=== PATIENT | male | born 1975 | race Two or more races ===

== ENCOUNTER 2020-12-22 08:48 | Emergency (ER) | payer OTHER ==
[~2020-12-22] VITALS: Ht 177.8 cm; Wt 129.7 kg
--- NOTE | 2020-12-22 08:57 | NUR ---
THE PATIENT BIBS FOR C/O ABDOMINAL PAIN AND RECTAL BLEED. ABDOMEN SOFT AND NON-DISTENDED. DENIES PAIN AT THIS TIME. WILL CONTINUE TO MONITOR THE PATIENT.
--- NOTE | 2020-12-22 08:58 | NUR ---
DARRYN GOULD AT THE BEDSIDE
[2020-12-22 09:11] LABS: BASOPHILS % (AUTO) 0.7 % (0.0-2.0); EOSINOPHILS % (AUTO) 1.3 % (0.0-6.0); HEMATOCRIT 46 % (39-51); HEMOGLOBIN 15.7 g/dL (13.5-17.5); LYMPHOCYTES # (AUTO) 2.8 K/uL (0.8-4.8); LYMPHOCYTES % (AUTO) 45.2 % (20.0-44.0); MEAN CORPUSCULAR HGB CONC 34 g/dl (31.0-36.0); MEAN CORPUSCULAR VOLUME 87 fL (80-96); MONOCYTES # (AUTO) 0.8 K/uL (0.1-1.30); MONOCYTES % (AUTO) 12.4 % (2.0-12.0); NEUTROPHILS # (AUTO) 2.5 K/uL (1.8-8.9); NEUTROPHILS % (AUTO) 40.4 % (43.0-81.0); PLATELET COUNT (AUTO) 275 K/uL (150-450); WHITE BLOOD COUNT (AUTO) 6.3 K/uL (4.3-11.0)
[2020-12-22 09:21] LABS: CALCIUM, SERUM 8.8 mg/dL (8.5-10.1)
[2020-12-22] MEDS ORDERED: IV NS 0.9% 250 ML IV ONE (09:51)
[2020-12-22] MEDS ORDERED: IOHEXOL-300 100 ML VIAL IV ONE (09:51)
[2020-12-22] MEDS ORDERED: CT SWABBABLE VALVE TRANS SET 1 EA INFUS.SET MC ONE (09:51)
--- NOTE | 2020-12-22 09:53 | NUR ---
STARTED LAC G 18. THE PATIENT TOLERATED IV INSERTION WELL.
[2020-12-22 10:47] LABS: ALBUMIN 3.6 g/dL (3.4-5.0); BILIRUBIN,DIRECT 0.1 mg/dL (0.0-0.2); BILIRUBIN,TOTAL 0.2 mg/dL (0.2-1.0); TOTAL PROTEIN, SERUM 7.4 g/dL (6.4-8.2)
--- NOTE | 2020-12-22 11:07 | NUR ---
THE PATIENT IS RESTING IN BED. ALERT AND ORIENTED X4. DENIES PAIN. BREATHING EVEN AND UNLABORED. WILL CONTINUE TO MONITOR THE PATIENT.
[2020-12-22] MEDS ORDERED: AMOX-427 PO ×3 (11:18→11:29)
[2020-12-22] MEDS ORDERED: IBUP-1955 PO ×2 (11:18→11:27)
[2020-12-22] MEDS ORDERED: IBUP-1957 PO (11:29)
[2020-12-22 11:32] VITALS: BP 135/72
--- NOTE | 2020-12-22 11:32 | NUR ---
IV removed. Catheter intact and site benign. Pressure and 4x4 applied to site. No bleeding noted.Patient discharged to home in stable condition. Written and verbal after care instructions given. Patient verbalizes understanding of instruction.
== END 2020-12-22 11:32 | disposition home or self-care (01) ==
LOC: ER 08:48
DX: K62.5 Hemorrhage of anus and rectum (principal); K04.7 Periapical abscess without sinus; Z88.2 Allergy status to sulfonamides
CPT/HCPCS: 36415; 74177; 80048; 80076; 83690; 85025; 85730; 99285; J7050; Q9967

== ENCOUNTER 2021-12-20 13:24 | Emergency (ER) | payer OTHER ==
[~2021-12-20] VITALS: Ht 180.3 cm; Wt 99.8 kg
[~2021-12-20 13:24] MED LIST: AMOX-427 PO; IBUP-1955 PO; IBUP-1957 PO
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
--- NOTE | 2021-12-20 14:13 | NUR ---
DR GONZALEZ AT BEDSIDE
[2021-12-20] MEDS ORDERED: SUMATRIPTAN SUCCINATE 6 MG/0.5 ML VIAL SQ ONE ×2 (15:00→15:18)
[2021-12-20] MEDS ORDERED: ACETAMINOPHEN ES 500 MG TABLET PO ONE (15:00)
[2021-12-20] MEDS ORDERED: ACETAMINOPHEN ES 500 MG TABLET ONE (15:18)
[2021-12-20] MEDS ORDERED: DICL75TA5 PO (16:06)
[2021-12-20] MEDS ORDERED: GABA800T11 PO (16:06)
[2021-12-20 16:23] VITALS: BP 124/64
--- NOTE | 2021-12-20 16:23 | NUR ---
Patient discharged to home in stable condition. Written and verbal after care instructions given. Patient verbalizes understanding of instruction.
== END 2021-12-20 16:23 | disposition home or self-care (01) ==
LOC: ER 13:26
DX: S06.0X0A Concussion without loss of consciousness, initial encounter (principal); Z88.2 Allergy status to sulfonamides; Z79.899 Other long term (current) drug therapy; Y04.0XXA Assault by unarmed brawl or fight, initial encounter; Y93.89 Activity, other specified; Y92.89 Other specified places as the place of occurrence of the external cause; Y99.8 Other external cause status
CPT/HCPCS: 99284; 72125; 96372; 70450; J3030